=== PATIENT | male | born 1950 | race Hispanic/Latino ===

== ENCOUNTER 2018-03-08 09:17 | Day surgery (SDC) | payer MEDICARE ==
[2018-03-01 08:16] VITALS: BMI 37.0
[~2018-03-08 09:17] MED LIST: Sodium Chloride 0.9% 1,000 ML IV SCH
[2018-03-08] MEDS ORDERED: Propofol 10 mg/ml Inj (20 ML) ONE (11:16)
[2018-03-08 12:15] VITALS: O2SAT 96
[2018-03-08 12:22] VITALS: RESP 18; TEMP 97.9
[2018-03-08 12:23] VITALS: PULSE 61
[2018-03-08 12:47] VITALS: BP 154/71
== END 2018-03-08 13:25 | disposition home or self-care (01) ==
LOC: ENDO 09:17
PROVIDERS: ATTEND Internal Medicine Gastroenterology
DX: K22.10 Ulcer of esophagus without bleeding (principal); K57.10 Diverticulosis of small intestine without perforation or abscess without bleeding; K21.9 Gastro-esophageal reflux disease without esophagitis; K29.50 Unspecified chronic gastritis without bleeding; R13.10 Dysphagia, unspecified; I10 Essential (primary) hypertension
CPT/HCPCS: 43239; 82948; 88305; 88312; 88342; J2001; J2704; J7030; J7040

== ENCOUNTER 2018-11-22 09:33 | Day surgery (SDC) | payer MEDICARE ==
[2018-11-14 11:30] VITALS: BMI 34.9
[2018-11-22 10:31] VITALS: RESP 16
[2018-11-22] MEDS ORDERED: Propofol 10 mg/ml Inj (20 ML) ONE (11:23)
[2018-11-22] MEDS ORDERED: Sodium Chloride 0.9% 1,000 ML IV SCH (12:15)
[2018-11-22 15:56] VITALS: BP 149/79; PULSE 61; TEMP 97.8; O2SAT 97
== END 2018-11-22 13:54 | disposition home or self-care (01) ==
LOC: ENDO 09:33
PROVIDERS: ATTEND Internal Medicine Gastroenterology
DX: K28.9 Gastrojejunal ulcer, unspecified as acute or chronic, without hemorrhage or perforation (principal); K31.7 Polyp of stomach and duodenum; K29.50 Unspecified chronic gastritis without bleeding; I10 Essential (primary) hypertension; E11.9 Type 2 diabetes mellitus without complications; E78.5 Hyperlipidemia, unspecified
CPT/HCPCS: 43239; 88305; 88342; J2704; J7030; J7040